=== PATIENT | female | born 1995 | race Caucasian/White ===

== ENCOUNTER 2016-12-11 08:15 | Outpatient (CLI) | payer OTHER | END 2016-12-11 23:00 | LOC: LAB SRH 08:15 | DX: Z34.81 Encounter for supervision of other normal pregnancy, first trimester (principal) | CPT/HCPCS: 90039; 90074; 91162; 91163 ==

== ENCOUNTER 2016-12-26 08:43 | Outpatient (CLI) | payer OTHER | END 2016-12-26 23:00 | LOC: LAB SRH 08:43 | DX: R73.02 Impaired glucose tolerance (oral) (principal) | CPT/HCPCS: 90074; 92652 ==

== ENCOUNTER 2017-01-06 09:13 | Outpatient (CLI) | payer OTHER | END 2017-01-06 10:30 | disposition home or self-care (01) | LOC: OBC SRH 09:13 → OB SRH 09:15 → OBC SRH 10:30 | PROC: 4A0HXCZ Measurement of Products of Conception, Cardiac Rate, External Approach (ICD-10-PCS; principal; 2017-01-06) | DX: O47.03 False labor before 37 completed weeks of gestation, third trimester (principal); O36.8120 Decreased fetal movements, second trimester, not applicable or unspecified; Z3A.31 31 weeks gestation of pregnancy ==

== ENCOUNTER → 2017-02-13 | Outpatient (CLI) | payer OTHER ==
[~2017-02-13] MED LIST: NORCO1 TA1 PO
--- NOTE | 2017-02-13 12:55 | DIAGNOSTIC IMAGING REPORT ---
PROCEDURE: US OB RE-EVALUATION INDICATION: RECHECK PLACENTA TECHNIQUE: Hansen scale, color and spectral Doppler images of the gravid uterus. COMPARISON: OB ultrasound 10/07/2016. FINDINGS: Single intrauterine with vertex presentation and posterior placenta without previa. There are a few placental venous lakes which have decreased in size. Normal closed cervix measures 4.7 cm. Heart rate 137 bpm. RICKY 12.6 cm. Stomach, four-chamber heart view, diaphragm, stomach, bladder and kidneys are grossly normal. IMPRESSION: 1. Single live intrauterine with vertex presentation 2. Partial resolution of several placental venous lakes
== END ==
LOC: US SRH 11:00
DX: O43.899 Other placental disorders, unspecified trimester (principal); Z3A.00 Weeks of gestation of pregnancy not specified

== ENCOUNTER 2017-02-27 04:38 | Outpatient (CLI) | payer OTHER | END 2017-02-27 09:00 | disposition home or self-care (01) | LOC: OBC SRH 04:38 → OB SRH 04:44 → OBC SRH 09:00 | PROC: 4A0HXCZ Measurement of Products of Conception, Cardiac Rate, External Approach (ICD-10-PCS; principal; 2017-02-27) | DX: O47.1 False labor at or after 37 completed weeks of gestation (principal); Z3A.39 39 weeks gestation of pregnancy ==

== ENCOUNTER 2017-02-28 07:32 | Outpatient (CLI) | payer OTHER | END 2017-02-28 10:30 | disposition home or self-care (01) | LOC: OBC SRH 07:32 → OB SRH 07:35 → OBC SRH 10:30 | PROC: 4A0HXCZ Measurement of Products of Conception, Cardiac Rate, External Approach (ICD-10-PCS; principal; 2017-02-28) | DX: O47.1 False labor at or after 37 completed weeks of gestation (principal); Z3A.39 39 weeks gestation of pregnancy ==

== ENCOUNTER 2017-02-28 21:05 | Inpatient (IN) | payer OTHER ==
[~2017-02-28] VITALS: Ht 165.1 cm; Wt 79.4 kg
[2017-03-01] VITALS (7 sets, daily range): BP systolic 110–147; BP diastolic 56–75
--- NOTE | 2017-03-01 14:48 | History & Physical Report ---
Admission Admit Date 02/28/17 Information Source Information Source: Self History Chief Complaint Labor History of Present Illness 21 yo G1 at 39+3 presents with regular uterine contractions q 2-3 min. These have increased in frequency and intensity since her triage visit Friday morning. No LOF or VB. Patient History 1. Normal labor and delivery Social History No tobacco, alcohol, drugs Family History Family history was reviewed; no changes noted. Medications and Allergies Medications Current Medications Sig/Emily Start time Last Medication Dose Route Stop Time Status Admin Oxytocin/Lactated 500 ML ASDIRECTED 03/01 0600 AC Ringer's IV Calcium Carbonate 500 MG Q4H PRN 02/28 231 AC PO Fentanyl/Bupivacaine See Dose TITRATE 02/28 2315 AC 03/01 HCl Insts (1) EPID 0658 Lactated Ringer's 1,000 ML ASDIRECTED 02/28 231 AC IV Lidocaine HCl 5 ML PRN PRN 02/28 2315 AC TOP Morphine Sulfate 4 MG Q4H PRN 02/28 2315 AC IV Ondansetron HCl 4 MG Q4H PRN 02/28 2315 AC IV Ondansetron HCl 4 MG Q4H PRN 02/28 2315 AC PO Dose Instructions: (1)Fentanyl/Bupivacaine HCl: ADJUSTMENTS PER ANESTHESIA Allergies Coded Allergies: NKA (01/06/17) Review of Systems Constitutional Denies: Fever, Chills, Sweats. Respiratory Denies: Cough. Cardiovascular Denies: Chest Pain. Gastrointestinal Abdominal Pain (contractions). Genitourinary Denies: Dysuria, Frequency, Incontinence. Physical Exam Vital Signs / I&Os I&O 03/01 0000 02/28 1600 02/28 0800 Intake Total Output Total Balance General Appearance Alert, Oriented X3, Cooperative, No acute distress HEENT Normal exam Lungs Normal exam Cardiovascular Normal exam Abdomen gravid, palpable contractions Pelvic cervix 5 cm/70% effaced Extremities 1+ edema LAB Results Laboratory Tests 02/28 2130 Hematology WBC (4.5 - 11.5 K/uL) 14.1 RBC (4.00 - 5.20 M/uL) 3.76 Hgb (12.0 - 16.0 gm/dL) 10.7 Hct (36.0 - 46.0 %) 32.1 MCV (80 - 100 fL) 86 MCH (26 - 34 pg) 29 RDW (11.6 - 14.8 %) 13.9 Neut % (Auto) (50 - 75 %) 82.1 Lymph % (Auto) (25 - 40 %) 10.3 [place] % (Auto) (3 - 14 %) 7.2 Eos % (Auto) (0 - 4 %) 0.2 Baso % (Auto) (0 - 2 %) 0.2 Plt Count, EDTA (150 - 400 K/uL) 284 PUBS MCHC (31 - 37 g/dL) 33 Assessment and Plan Problem List 1. Normal labor and delivery Plan Epidural as desired Augment as needed Continuous EFM
--- NOTE | 2017-03-01 20:02 | NUR ---
PATIENT HAD AT 1742 OF VIGOROUS FEMALE. CONTINUES TO HAVE SOME NUMBNESS IN BLE POST EPIDURAL. EDMOND PACK GIVEN AND EXPLAINED TO PATIENT, SHE VERBALIZES UNDERSTANDING. ALSO MEDICATED WITH PRN VICODIN ORDERED. SHE IS GOING TO NOW TRY TO SLEEP, FOB AT BEDSIDE ASSISTING WITH CARE. WILL CONTINUE TO MONITOR.
[2017-03-02 01:04] VITALS: BP 112/64
[2017-03-02 10:30] VITALS: BP 121/58
--- NOTE | 2017-03-02 11:59 | Progress Note ---
Subjective General Feeling well. Pain controlled with PO pain meds. Minimal to moderate lochia. . Tolerating PO. Ambulating. Voiding without difficulty. Would like to go home today. Physical Exam Vital Signs / I&Os Vital Signs Date Time Temp Pulse Resp B/P Pulse O2 O2 Flow FiO2 Ox Delivery Rate 03/02 1030 98.1 69 20 121/58 03/02 0104 98.2 18 112/64 03/01 1939 99.3 77 18 110/61 03/01 1909 82 18 111/61 03/01 1840 89 18 120/56 03/01 1825 94 18 147/67 03/01 1812 94 18 111/75 03/01 1754 97 18 111/66 03/01 1747 100 18 133/60 I&O 03/02 0000 03/01 1600 03/01 0800 Intake Total 1000 Output Total 950 Balance 50 General Appearance Alert, Oriented X3, Cooperative, No acute distress HEENT Atraumatic Lungs Normal exam Cardiovascular Normal exam Abdomen fundus firm below umbilicus Extremities Normal exam LAB Results Laboratory Tests 03/02 0509 Hematology Hgb (12.0 - 16.0 gm/dL) 9.7 Hct (36.0 - 46.0 %) 28.8 Assessment and Plan Problem List 1. (normal spontaneous vaginal delivery) Plan Continue routine pp care help as needed Desires d/c home today
[2017-03-02] MEDS ORDERED: NORCO1 TA1 PO (12:02)
--- NOTE | 2017-03-02 12:08 | Provider's Discharge Care Plan ---
Problem, Goal, Plan Problem List 1. (normal spontaneous vaginal delivery) Goals: Improved health/wellness, Increase independence, No readmissions Instructions: Follow up as directed, Increase activity level, Take meds as directed
--- NOTE | 2017-03-02 14:37 | NUR ---
Doing well. Continues to c/o nipple tenderness and voices concern over BF. Nipple shield helping slightly. Comfortable and independent with BF. Plans to use breast pump and supplement if needed. Good latch. supportive and helpful with patient and baby's needs.
--- NOTE | 2017-03-02 18:30 | NUR ---
REVIEWED DISCHARGE INSTRUCTIONS FOR HOME CARE, INSTRUCTED PT ON SIGNS AND SYMPTOMS TO WATCH FOR INFECTION, INCREASED BLEEDING, BREAST CARE, NUTRITION, CALORIC INTAKE FOR , REST AND EXERCISE, DANGER SIGNS AND WHEN TO CALL THE DOCTOR OR GO TO THE ER AND CONTROL, VAGINAL REST FOR 6 WEEKS. REVIEWED DISCHARGE INSTRUCTIONS AND HOME CARE FOR , HEP B WAS DECLINED AT THIS TIME, REVIEWED FEEDING, DIAPERING, BATHING, BULB SYRINGE USE, AND WARNING SIGNS FOR WHEN TO CALL THE DOCTOR OR 911. PATIENT STATED UNDERSTANDING, HAD NO QUESTIONS AT THIS TIME. PT DISCHARGED HOME IN STABLE CONDITION WITH HER .
== END 2017-03-02 18:00 | disposition home or self-care (01) | DRG 560 ==
LOC: OBC SRH 21:05 → OB SRH 21:07 → OBC SRH 21:28 → OB SRH 21:29
PROVIDERS: ADMIT Obstetrics & Gynecology
PROC: 0KQM0ZZ Repair Perineum Muscle, Open Approach (ICD-10-PCS; principal; 2017-03-01)
PROC: 10E0XZZ Delivery of Products of Conception, External Approach (ICD-10-PCS; principal; 2017-03-01)
DX: O76 Abnormality in fetal heart rate and rhythm complicating labor and delivery (principal); Z3A.39 39 weeks gestation of pregnancy; Z37.0 Single live birth; O70.1 Second degree perineal laceration during delivery; O77.0 Labor and delivery complicated by meconium in amniotic fluid
CPT/HCPCS: 40011; 84038; 90074; 90600; 90605; 90606; 91162; 91163; 95059